=== PATIENT | male | born 1990 | race African-American/Black ===

== ENCOUNTER 2017-07-09 05:01 | Emergency (ER) | payer OTHER ==
[~2017-07-09] VITALS: Ht 175.3 cm; Wt 95.0 kg
[2017-07-09 05:13] VITALS: BP 126/69; PULSE 91; RESP 18; TEMP 98.6; O2SAT 100
--- NOTE | 2017-07-09 05:37 | PD ---
HPI Chief Complaint: Chest Pain Time Seen by Provider: 05:16 Travel History International Travel<30 days: No Contact w/Intl Traveler<30days: No Traveled to known affect area: No History of Present Illness HPI 27-year-old male complains of left hand pain and chest pain. Patient states that he started having left hand pain and chest pain for the past few months. Patient states that the chest pain started this intermittent big-time and became more constant recently. Patient denies any chest chest pain radiation. Patient denies any palpitation nausea vomiting diaphoresis. Patient states the chest pain is not associate with breathing or exercise. Patient denies any history of CAD. Patient denies history hypertension, diabetes, hyperlipidemia. Patient is a smoker. Patient states that he smokes marijuana occasionally. Patient denies any other illicit drug abuse. Patient states he drinks alcohol occasionally. Patient states that he has persistent left hand pain for the past few months. Patient states that he has some injury to the left hand in the past. PFSH Past Medical History Medical History: Denies Significant Hx Cardiovascular Problems: No Chemotherapy: No Cerebrovascular Accident: No Diabetes: No Diminished Hearing: No Immunizations Current: Yes Tetanus Vaccination: Unknown Influenza Vaccination: No Past Surgical History Surgical History: No Previous Surgery Social History Alcohol Use: Yes (OCC.) Tobacco Use: Yes Substance Use: Yes Allergies-Medications (Allergen,Severity, Reaction): Coded Allergies: No Known Allergies (Verified , 07/09/17) Reported Meds & Prescriptions Reported Meds & Active Scripts Active No Active Prescriptions or Reported Medications Review of Systems General / Constitutional: No: Fever Eyes: No: Visual changes HENT: No: Headaches Cardiovascular: Positive: Chest Pain or Discomfort Respiratory: No: Shortness of Breath Gastrointestinal: No: Abdominal Pain Genitourinary: No: Dysuria Musculoskeletal: Positive: Pain Skin: No Rash Neurologic: No: Weakness Psychiatric: No: Depression Endocrine: No: Polydipsia Hematologic/Lymphatic: No: Easy Bruising Physical Exam Narrative GENERAL: Well-nourished, well-developed patient. SKIN: Focused skin assessment warm/dry. HEAD: Normocephalic. Patient has minor skin abrasion to right cheek area. EYES: No scleral icterus. No injection or drainage. NECK: Supple, trachea midline. No JVD or lymphadenopathy. CARDIOVASCULAR: Regular rate and rhythm without murmurs, gallops, or rubs. RESPIRATORY: Breath sounds equal bilaterally. No accessory muscle use. GASTROINTESTINAL: Abdomen soft, non-tender, nondistended. MUSCULOSKELETAL: No cyanosis, or edema. BACK: Nontender without obvious deformity. No CVA tenderness. Patient has mild diffuse tenderness over the dorsum aspect of the left hand. Range of motion all fingers. No redness no heat noted. Data Data Last Documented VS Vital Signs Date Time Temp Pulse Resp B/P (MAP) Pulse Ox O2 Delivery O2 Flow Rate FiO2 07/09/17 05:16 95 18 100 Room Air 07/09/17 05:13 98.6 126/69 (88) Orders Orders Electrocardiogram (07/09/17 05:21) Chest, Single Ap (07/09/17 05:21) Hand, Complete ([id number]) (07/09/17 05:21) Tetanus/Diphtheria Tox Adult (Tetanus/Di (07/09/17 05:45) MDM Medical Decision Making Medical Screen Exam Complete: Yes Emergency Medical Condition: Yes Interpretation(s) 5:36 AM. EKG shows sinus rhythm nonspecific ST-T wave change. Chest x-ray and left hand x-ray shows no acute process. Differential Diagnosis Differential diagnosis including musculoskeletal, angina, HI, PE, pneumothorax. Narrative Course 27-year-old male with chest pain and left hand pain. Symptom has been going on for the past few months. Diagnosis Primary Impression: Atypical chest pain Additional Impression: Strain of left hand Qualified Codes: S66.912A - Strain of unspecified muscle, fascia and tendon at wrist and hand level, left hand, initial encounter Patient Instructions: General Instructions Additional Instructions: Tylenol and Advil for pain. Follow-up with personal physician. Return if worse. Med/Other Pt SpecificInfo: No Meds Exist/No RX given Scripts No Active Prescriptions or Reported Meds Disposition: [address] LAW ENFORCEMNT Condition: Stable Dylan Mauricio MD Jul 09, 2017 05:37
[2017-07-09] MEDS ORDERED: TETANUS/DIPHTHERIA TOXOID ADULT 0.5 ML VIAL IM ONE (05:45)
--- NOTE | 2017-07-09 05:53 | RADRPT ---
EXAM DATE/TIME: 07/09/2017 05:38 [facility] COMPARISON: No previous studies available for comparison. INDICATIONS : Chest pain MEDICAL HISTORY : None. SURGICAL HISTORY : None. ENCOUNTER: Initial ACUITY: 1 day PAIN SCORE: 6/10 LOCATION: Bilateral chest FINDINGS: A single view of the chest demonstrates the lungs to be symmetrically aerated without evidence of mas s, infiltrate or effusion. The cardiomediastinal contours are unremarkable. Osseous structures are intact. CONCLUSION: Normal examination. Oleg Landeros MD on July 09, 2017 at 5:52 Board Certified Radiologist. This report was verified electronically.
--- NOTE | 2017-07-09 05:55 | RADRPT ---
EXAM DATE/TIME: 07/09/2017 05:40 [facility] COMPARISON: No previous studies available for comparison. INDICATIONS : Pain to left hand x 3 weeks, unknown injury MEDICAL HISTORY : None. SURGICAL HISTORY : None. ENCOUNTER: Initial ACUITY: 3 weeks PAIN SCORE: 7/10 LOCATION: Left Hand FINDINGS: Three view examination of the left hand demonstrates no soft tissue swelling, dislocation, or fractur e. The carpal bones appear intact. The interphalangeal and metacarpophalangeal joints are intact. Bony mineralization is normal. CONCLUSION: Unremarkable examination of the left hand. Oleg Landeros MD on July 09, 2017 at 5:54 Board Certified Radiologist. This report was verified electronically.
[2017-07-09 06:17] VITALS: BP 139/93; PULSE 83; RESP 18; TEMP 98.1; O2SAT 100
--- NOTE | 2017-07-09 11:49 | EKG ---
Date Performed: 07/09/2017 Time Performed: 05:25:22 PTAGE: 27 years EKG: Sinus rhythm NORMAL ECG PREVIOUS TRACING : 06/25/2015 19.40 Compared to prior tracing no significant change DOCTOR: Afsaneh Pritchard Interpretating Date/Time 07/09/2017 11:47:56
== END 2017-07-09 06:18 ==
LOC: NEPE 05:01
DX: R07.89 Other chest pain (principal); S66.912A Strain of unspecified muscle, fascia and tendon at wrist and hand level, left hand, initial encounter; X58.XXXA Exposure to other specified factors, initial encounter
CPT/HCPCS: 71010; 73130; 90471; 90714; 93005

== ENCOUNTER 2018-02-09 21:31 | Emergency (ER) | payer SELFPAY ==
[~2018-02-09] VITALS: Ht 175.3 cm; Wt 93.0 kg
[2018-02-09 22:51] VITALS: BP 173/93; PULSE 89; RESP 20; TEMP 98.4; O2SAT 100
[2018-02-09 23:08] VITALS: BP 155/102; PULSE 92; RESP 18; O2SAT 100
[2018-02-09] MEDS ORDERED: SODIUM CHLOR 0.9% 1000 ML INJ 1,000 ML IV SCH (23:09)
[2018-02-09] MEDS ORDERED: SODIUM CHLORIDE 0.9% FLUSH 10 ML FLUSH IVF PRN (23:15)
[2018-02-09] MEDS ORDERED: RESP: ALBUTEROL 2.5 MG/IPRATROPIUM 0.5 MG NEB (SCH) INH ONE (23:15)
--- NOTE | 2018-02-09 23:17 | PD ---
HPI Chief Complaint: Respiratory Distress Time Seen by Provider: 23:00 Travel History International Travel<30 days: No Contact w/Intl Traveler<30days: No Traveled to known affect area: No History of Present Illness HPI Patient is a 27-year-old male presents to emergency room with complaints of chest pain as well as shortness of breath. 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 Patient reports that his chest pain is pleuritic in nature -denies any history of ACS, arrhythmia, denies any cardiac history. Patient reports that at this time, it is hard for him to take a deep breath, denies any history of PE or DVT. Patient with no family history of any abnormal clotting diseases. Denies family history of early DE or cardiac disease. Reports no cough or congestion at this time. PFSH Past Medical History Medical History: Denies Significant Hx Cardiovascular Problems: No Chemotherapy: No Cerebrovascular Accident: No Diabetes: No Diminished Hearing: No Immunizations Current: Yes Tetanus Vaccination: < 5 Years Influenza Vaccination: No Past Surgical History Surgical History: No Previous Surgery Social History Alcohol Use: Yes (OCC.) Tobacco Use: Yes ("couple") Substance Use: Yes Allergies-Medications (Allergen,Severity, Reaction): Coded Allergies: No Known Allergies (Verified Allergy, Unknown, 02/09/18) Reported Meds & Prescriptions Reported Meds & Active Scripts Active No Active Prescriptions or Reported Medications Review of Systems General / Constitutional: No: Fever Eyes: No: Visual changes HENT: No: Headaches Cardiovascular: Positive: Chest Pain or Discomfort, Palpitations, Irregular Rhythm, Tachycardia, No: Diaphoresis Respiratory: Positive: Shortness of Breath Gastrointestinal: No: Abdominal Pain Genitourinary: No: Dysuria Musculoskeletal: No: Pain Skin: No Rash Neurologic: No: Weakness Psychiatric: No: Depression Endocrine: No: Polydipsia Hematologic/Lymphatic: No: Easy Bruising Physical Exam Narrative GENERAL: mild distress SKIN: Focused skin assessment warm/dry. HEAD: Atraumatic. Normocephalic. EYES: Pupils equal and round. No scleral icterus. No injection or drainage. ENT: No nasal bleeding or discharge. Mucous membranes pink and moist. NECK: Trachea midline. No JVD. CARDIOVASCULAR: Regular rate and rhythm. No murmur appreciated. RESPIRATORY: No accessory muscle use. Clear to auscultation. Breath sounds equal bilaterally. GASTROINTESTINAL: Abdomen soft, non-tender, nondistended. Hepatic and splenic margins not palpable. MUSCULOSKELETAL: No obvious deformities. No clubbing. No cyanosis. No edema. NEUROLOGICAL: Awake and alert. No obvious cranial nerve deficits. Motor grossly within normal limits. Normal speech. PSYCHIATRIC: Appropriate mood and affect; insight and judgment normal. Data Data Last Documented VS Vital Signs Date Time Temp Pulse Resp B/P (MAP) Pulse Ox O2 Delivery O2 Flow Rate FiO2 02/10/18 00:04 77 17 151/95 (113) 100 Room Air 02/09/18 23:51 21 02/09/18 22:51 98.4 Orders Orders Electrocardiogram (02/09/18 23:) Ckmb (Isoenzyme) Profile (02/09/18 23:09) Complete Blood Count With Diff (02/09/18 23:09) Comprehensive Metabolic Panel (02/09/18 23:) D-Dimer (02/09/18:) Magnesium (Mg) (02/09/18 23:09) Prothrombin Time / Inr (Pt) (02/09/18 23:09) Act Partial Throm Time (Ptt) (02/09/18 23:09) Troponin I (02/09/18 23:) Chest, Single Ap (02/09/18 23:09) Ecg Monitoring (02/09/18 23:09) Iv Access Insert/Monitor (02/09/18 23:) Oximetry (02/09/18 23:09) Sodium Chloride 0.9% Flush (Ns Flush) (02/09/18 23:15) Ct Pulmonary Angiogram (02/09/18 23:09) Sodium Chlor 0.9% 1000 Ml Inj (Ns 1000 M (02/09/18 23:09) Albuterol-Ipratropium Neb (Duoneb Neb) (02/09/18 23:15) Drug Screen, Random Urine (02/09/18 23:17) Iohexol 350 Inj (Omnipaque 350 Inj) (02/09/18 23:44) CKMB (02/09/18 23:16) CKMB% (02/09/18 23:16) Potassium Chloride (Kcl) (02/10/18 00:15) Labs Laboratory Tests Test 02/09/18 23:16 White Blood Count 6.4 TH/MM3 Red Blood Count 5.15 MIL/MM3 Hemoglobin 14.6 GM/DL Hematocrit 43.8 % Mean Corpuscular Volume 85.1 FL Mean Corpuscular Hemoglobin 28.4 PG Mean Corpuscular Hemoglobin Concent 33.4 % Red Cell Distribution Width 13.1 % Platelet Count 195 TH/MM3 Mean Platelet Volume 9.1 FL Neutrophils (%) (Auto) 64.0 % Lymphocytes (%) (Auto) 23.4 % Monocytes (%) (Auto) 11.3 % Eosinophils (%) (Auto) 0.8 % Basophils (%) (Auto) 0.5 % Neutrophils # (Auto) 4.1 TH/MM3 Lymphocytes # (Auto) 1.5 TH/MM3 Monocytes # (Auto) 0.7 TH/MM3 Eosinophils # (Auto) 0.1 TH/MM3 Basophils # (Auto) 0.0 TH/MM3 CBC Comment DIFF FINAL Differential Comment Prothrombin Time 11.2 SEC Prothromb Time International Ratio 1.1 RATIO Activated Partial Thromboplast Time 26.0 SEC D-Dimer Quantitative (PE/DVT) LESS THAN 0.19 MG/L FEU Blood Urea Nitrogen 10 MG/DL Creatinine 1.26 MG/DL Random Glucose 80 MG/DL Total Protein 8.3 GM/DL Albumin 4.2 GM/DL Calcium Level 9.0 MG/DL Magnesium Level 2.0 MG/DL Alkaline Phosphatase 76 U/L Aspartate Amino Transf (AST/SGOT) 25 U/L Alanine Aminotransferase (ALT/SGPT) 22 U/L Total Bilirubin 0.4 MG/DL Sodium Level 141 MEQ/L Potassium Level 3.4 MEQ/L Chloride Level 108 MEQ/L Carbon Dioxide Level 26.9 MEQ/L Anion Gap 6 MEQ/L Estimat Glomerular Filtration Rate 85 ML/MIN Total Creatine Kinase 965 U/L Creatine Kinase MB 1.3 NG/ML Creatine Kinase MB % 0.1 % Troponin I LESS THAN 0.02 NG/ML MDM Medical Decision Making Medical Screen Exam Complete: Yes Emergency Medical Condition: Yes Medical Record Reviewed: Yes Interpretation(s) EKG at 2324: NSR at 89bpm, qt/qtc: 352/398, nonspecific t wave changes Vital Signs Date Time Temp Pulse Resp B/P (MAP) Pulse Ox O2 Delivery O2 Flow Rate FiO2 02/09/18 23:08 92 18 155/102 (119) 100 Room Air 02/09/18 22:51 98.4 89 20 173/93 (119) 100 Differential Diagnosis ACS, arrhythmia, PE, URI, pneumonia, pneumothorax, pericarditis, myocarditis Narrative Course Patient is a 27-year-old male presents the emergency room with complaints of pleuritic chest pain and shortness of breath. Patient is nontoxic on physical exam and does have stable vital signs. During the course of the patients emergency department visit, the patients history, examination, and differential diagnosis were reviewed with the patient. The patient was placed on a property assessment monitor with oximetry and frequent blood pressure monitoring. The patient had an IV access obtained and blood work sent for analysis. One set of cardiac enzymes is ordered to evaluate for infectious etiology of chest pain which includes pericarditis or myocarditis, it was not ordered to rule out ACS. CT of chest was ordered to r/o PE given his clinical symptoms of pleuritic chest pain with elevated heart rate and shortness of breath. The patient was initially provided IVF and 1 neb treatment The patients laboratory studies were reviewed and remarkable for: CBC & BMP Diagram 02/09/18 23:16 Total Protein 8.3 H, Albumin 4.2, Calcium Level 9.0, Magnesium Level 2.0, Alkaline Phosphatase 76, Aspartate Amino Transf (AST/SGOT) 25, Alanine Aminotransferase (ALT/SGPT) 22, Total Bilirubin 0.4 trop 0.02, total ck 965 Radiology studies were reviewed and remarkable for: X-ray of the chest: Normal examination CT of the chest: Normal examination, no filling defects seen in the pulmonary arteries I reviewed all labs and studies as well as all incidental findings with patient in detail. Patient is feeling much better at this time. Plan for patient to follow up with primary care doctor. he will return to ER as needed. Discussed need for smoking cessation as he does admit to smoking marijuana as well as cigarettes. Patient with elevated ck total- patient reports that he has been drinking alot of iced teas and soda's. I did encourage increased fluids and for him to have repeat ck total. He will follow up with pcp. Signs and symptoms of when to return to the ER was reviewed with patient in detail. Diagnosis Primary Impression: Shortness of breath Additional Impressions: Hypokalemia Rhabdomyolysis Qualified Codes: M62.82 - Rhabdomyolysis Referrals: [facility] Patient Instructions: General Instructions Additional Instructions: Please provide patient with a copy of their lab work and studies at discharge* * Please follow up with your primary care doctor in 2-3 days Return to the ER if symptoms worsen or progress Return to the ER as needed Please drink plenty of water and have your labs repeated in 2-3 days Scripts No Active Prescriptions or Reported Meds Disposition: 01 DISCHARGE HOME Condition: Stable Swati Lackey DO Feb 09, 2018 23:17
[2018-02-09 23:40] LABS: AUTOMATED NEUTROPHIL # 4.1 TH/MM3 (1.8-7.7); BASOPHIL % 0.5 % (0.0-2.0); EOSINOPHIL # 0.1 TH/MM3 (0-0.4); EOSINOPHIL % 0.8 % (0.0-4.0); HEMATOCRIT 43.8 % (39.0-51.0); HEMOGLOBIN 14.6 GM/DL (13.0-17.0); LYMPH % 23.4 % (9.0-44.0); LYMPHOCYTE # 1.5 TH/MM3 (1.0-4.8); MEAN CELL VOLUME 85.1 FL (80.0-100.0); MEAN CORPUSCULAR HEMOGLOBIN 28.4 PG (27.0-34.0); MEAN CORPUSCULAR HGB CONC 33.4 % (32.0-36.0); MEAN PLATELET VOLUME 9.1 FL (7.0-11.0); MONO % 11.3 % (0.0-8.0); MONOCYTE # 0.7 TH/MM3 (0-0.9); PLATELET COUNT 195 TH/MM3 (150-450); RED BLOOD COUNT 5.15 MIL/MM3 (4.50-5.90); RED CELL DISTRIBUTION WIDTH 13.1 % (11.6-17.2); WHITE BLOOD COUNT 6.4 TH/MM3 (4.0-11.0)
[2018-02-09] MEDS ORDERED: IOHEXOL 350 MG/ML 10 ML VIAL (for RAD DIAG) IVCONTRAST ONE (23:44)
[2018-02-09 23:49] LABS: INTERNATIONAL NORMALIZED RATIO 1.1 RATIO; PROTHROMBIN TIME - PATIENT 11.2 SEC (9.8-11.6)
[2018-02-09 23:51] VITALS: O2SAT 100
[2018-02-09 23:52] LABS: ALBUMIN 4.2 GM/DL (3.4-5.0); ALT (GPT) 22 U/L (12-78); AST (GOT) 25 U/L (15-37); BICARBONATE 26.9 MEQ/L (21.0-32.0); BLOOD UREA NITROGEN 10 MG/DL (7-18); CHLORIDE 108 MEQ/L (98-107); CREATININE 1.26 MG/DL (0.60-1.30); GLOMERULAR FILTRATION RATE 85 ML/MIN (>89); GLUCOSE,RANDOM 80 MG/DL (74-106); SODIUM (NA) 141 MEQ/L (136-145)
--- NOTE | 2018-02-09 23:55 | RADRPT ---
EXAM DATE/TIME: 02/09/2018 23:39 [facility] COMPARISON: No previous studies available for comparison. INDICATIONS : Shortness of breath. IV CONTRAST: 69 cc Omnipaque 350 (iohexol) IV RADIATION DOSE: 10.65 CTDIvol (mGy) MEDICAL HISTORY : None SURGICAL HISTORY : None. ENCOUNTER: Initial ACUITY: 1 day PAIN SCALE: 0/10 LOCATION: chest TECHNIQUE: Volumetric scanning of the chest was performed using a pulmonary embolism protocol MIP images were re constructed. Using automated exposure control and adjustment of the mA and/or kV according to patien t size, radiation dose was kept as low as reasonably achievable to obtain optimal diagnostic quality images. DICOM format image data is available electronically for review and comparison. Follow-up recommendations for detected pulmonary nodules are based at a minimum on nodule size and pa tient risk factors according to Fleischner Society Guidelines. FINDINGS: PULMONARY ARTERIES: No filling defects are seen in the pulmonary arteries through the segmental level. LUNGS: There is no consolidation or pneumothorax . No concerning pulmonary nodule is visualized. PLEURAE: There is no pleural thickening or pleural effusion. MEDIASTINUM: There is good visualization of the great vessels of the middle mediastinum. No evidence of mediastin al or hilar adenopathy/mass. MUSCULOSKELETAL: Within normal limits for patient age. MISCELLANEOUS: The visualized upper abdominal organs demonstrate no acute abnormality. CONCLUSION: Normal examination. Oleg Landeros MD on February 09, 2018 at 23:53 Board Certified Radiologist. This report was verified electronically.
[2018-02-09 23:57] LABS: D-DIMER LESS THAN 0.19 MG/L FEU (0.00-0.50)
[2018-02-10 00:04] VITALS: BP 151/95; PULSE 77; RESP 17; O2SAT 100
--- NOTE | 2018-02-10 00:05 | RADRPT ---
EXAM DATE/TIME: 02/09/2018 23:45 [facility] COMPARISON: CHEST SINGLE AP, July 09, 2017, 5:38. INDICATIONS : Shortness of breath. MEDICAL HISTORY : None. SURGICAL HISTORY : None. ENCOUNTER: Initial ACUITY: 1 day PAIN SCORE: 0/10 LOCATION: Bilateral chest FINDINGS: A single view of the chest demonstrates the lungs to be symmetrically aerated without evidence of mas s, infiltrate or effusion. The cardiomediastinal contours are unremarkable. Osseous structures are intact. CONCLUSION: Normal examination. Oleg Landeros MD on February 10, 2018 at 0:03 Board Certified Radiologist. This report was verified electronically.
[2018-02-10 00:06] LABS: ALKALINE PHOSPHATASE 76 U/L (45-117); TOTAL BILIRUBIN ADULT 0.4 MG/DL (0.2-1.0); TOTAL PROTEIN 8.3 GM/DL (6.4-8.2); TROPONIN I LESS THAN 0.02 NG/ML (0.02-0.05)
[2018-02-10] MEDS ORDERED: POTASSIUM CHLORIDE 20 MEQ CONTROLLED RELEASE TAB PO ONE (00:15)
--- NOTE | 2018-02-10 14:50 | EKG ---
Date Performed: 02/09/2018 Time Performed: 23:24:27 PTAGE: 27 years EKG: Sinus rhythm NONSPECIFIC T-WAVE ABNORMALITY BORDERLINE ECG Since PREVIOUS TRACING , no significant change noted PREVIOUS TRACIN07/09/2017 05.25 DOCTOR: Saud Loza Interpretating Date/Time 02/10/2018 14:49:03
== END 2018-02-10 01:29 | disposition home or self-care (01) ==
LOC: NEPD 21:31
DX: R06.02 Shortness of breath (principal); E87.6 Hypokalemia; M62.82 Rhabdomyolysis; Z72.0 Tobacco use
CPT/HCPCS: 71045; 71275; 80053; 82550; 82552; 83735; 84484; 85025; 85379; 85610; 85730; 93005; 94664; 99285; J7030; Q9967